=== PATIENT | male | born 1955 | race Caucasian/White ===

== ENCOUNTER → 2020-07-10 | Outpatient (CLI) | payer MEDICARE, OTHER ==
[~2020-07-10] MED LIST: BUPIVACAINE MPF 0.25% 10 ML VIAL. ONE; IOHEXOL 180 MG/ML 10 ML VIAL. ONE; [UNRECOGNIZED DRUG - REMARK]; methylPREDNISolone ACETATE 80 MG/ML VIAL. ONE
--- NOTE | 2020-07-10 15:27 | PDOC1 ---
INITIAL PAIN CONSULT DATE OF SERVICE: DOS: DATE: 07/10/20 TIME: 15:20 CHIEF COMPLAINT: Chief Complaint: Right knee joint pain following acute injury HISTORY OF PRESENT ILLNESS: 64-year-old male presents history of pain in the right knee after acute injury August 2019 as he was moving some large slabs of [place] and one slapped into the medial aspect of his right knee. Patient reports that since that time is been painful on and off in intensity but always present with difficulty walking standing put all of his weight on his right knee. Patient reports no loss of motor function but significant pain with activity standing walking especially climbing stairs putting all of his weight on his right leg patient describes the pain as throbbing intermittent intensity better with sitting or resting generally does not awaken him from sleep at night but occasionally can if he lays on his right side. Patient reports not effective bowel bladder control but does affect his body walk fairly significantly always not using any assistive devices. Patient is doing some stretching strengthening on his own but is not had any formal physical therapy is taking ibuprofen which does help by about 20 to 30% but is short-lived for only about 3 to 4 hours. Patient had plain films of the knees showing some degenerative change and early osteoarthritis. PAST MEDICAL HISTORY: PMH: Esophageal reflux PREVIOUS SURGERIES: Past Surgical Hx: Lumbar laminectomy 2014, sinus surgery 1994, inguinal hernia repair, LASEK procedure CURRENT MEDICATIONS: Current Meds: Active Scripts Medications Dose Route/Sig Max Daily Dose Days Date Category [denies daily meds] 07/10/20 Reported ALLERGIES; Allergies: Coded Allergies: No Known Drug Allergies (Unverified , 07/10/20) FAMILY HISTORY: Family Hx: No major medical problems or conditions that he is aware of SOCIAL HISTORY: Social Hx: Patient does not smoke not use any illegal illicit recreational drugs drinks alcoholic beverages approximately 3 times a week is lives with his spouse lives locally in [facility] REVIEW OF SYSTEMS: ROS: Positive for those items mentioned in history of present illness, all systems are reviewed, otherwise negative, is complete full and well-documented on patient's chart PHYSICAL EXAM: VS: Blood pressure is 123/83 pulse 96 respiration 16 temperature 98.6 F height is 5 foot 11 inches weight is 189 pounds PE: PHYSICAL EXAMINATION: GENERAL: The patient is awake, alert, oriented, appropriate, very pleasant demeanor HEENT: Shows normocephalic, atraumatic. Extraocular movements are intact and symmetrical. Oral cavity: Mucous membranes moist and pink. Dentition is intact. NECK: Shows anterior throat supple without palpable lymphadenopathy noted. Swallow reflex symmetrical. CHEST: Shows normal on inspection. Breath sounds are clear bilaterally, no rales rhonchi or wheezes auscultated. HEART: Shows S1, S2 clear. No murmurs auscultated. ABDOMEN: Soft, nontender, nondistended, flat. No palpable organomegaly is noted. No rebound or guarding demonstrated. BACK: Shows spine grossly in the midline. Normal-appearing cervical lordotic curvature. There is slightly increased thoracic kyphosis, some minor flattening of the lumbar lordotic curvature. Lumbar paraspinous muscles show symmetrical on inspection, on palpation shows some moderate tenderness diffusely throughout the upper, middle and lower distribution of the paraspinous muscles bilaterally without specific trigger points, without radiation of pain. No tenderness over the spinous processes, sacrum or sacroiliac regions. EXTREMITIES: Lower extremities show deep tendon reflexes 2+ in the patellar and tendo calcaneus tendons. Motor exam is 5 on a scale of 5 with right dorsiflexion, extension, quadriceps and hamstring flexion and 5/5 on the left. Peripheral pulses are 1+ posterior tibial. No peripheral edema is noted bilaterally. Lower extremities are warm and dry to touch, equal in color and appearance. Patient's right knee shows no significant tenderness with displacement of the patella both medial and laterally. Good range of motion without crepitus without ratcheting no shelf sign. Patient does have some moderate tenderness with palpation of the medial collateral ligament but not the lateral and without radiation. With weightbearing patient reports moderate pain the medial aspect of the knee on the right only. SKIN: Shows warm and dry, good turgor. No edema. No sores, rashes or bruising throughout. IMPRESSION: Impression: 64-year-old male with 11-month history after acute injury right knee with continued right knee pain also consistent with osteoarthritis Plan: Options were discussed with the patient including conservative medical management physical therapies interventional techniques. He like to pursue int erventional techniques we discussed an intra-articular right knee joint injection using description as well as anatomical models described procedure. Patient understands wished to proceed risk were discussed including but not limited to bleeding infection possibility of intravascular injection and sequelae spread local acetic numbness side effects of steroid medication exposure fluoroscopy and portals regarding pain control. Patient understands wished to proceed. Patient return to clinic in approximately 1 month for follow-up or as necessary. Patient was counseled as to return appointment activity level and side effects to be aware of. Under sterile prep and drape patient supine position using C-arm fluoroscopic guidance patient's right knee was visualized and locally identified on the medial aspect of the knee joint locally anesthetized using 1% lidocaine this time 22-gauge quickie needle with stylette was then introduced under direct fluoroscopic guidance into the medial aspect of the intra-articular knee joint without difficulty. Contrast was injected and showed good spread within the knee joint self without extravasation or washout. At this time solution containing 3 cc 0.25 bupivacaine and 80 mg Depo-Medrol was then injected into the knee joint needle was withdrawn and sterile bandage was applied. Patient tolerated the procedure well and had no complications. LUPILLO FOWLER MD Jul 10, 2020 15:27
== END | disposition home or self-care (01) ==
LOC: PNCL 14:28
PROVIDERS: ATTEND Anesthesiology
DX: M25.561 Pain in right knee (principal); K21.9 Gastro-esophageal reflux disease without esophagitis; Z79.899 Other long term (current) drug therapy; Z98.890 Other specified postprocedural states
CPT/HCPCS: 20610; 77002; J1040; J3490; Q9965

== ENCOUNTER → 2020-09-26 | Outpatient (CLI) | payer MEDICARE, OTHER ==
--- NOTE | 2020-09-26 15:55 | PDOC ---
Progress Note - Pain Clinic Date of Service: DOS: DATE: 09/26/20 TIME: 15:49 Diagnosis: Dx: Right knee joint pain with osteoarthritis History or Present Illness: HPI: 65-year-old male returns for follow-up status post right intra-articular knee joint injection July 10, 2020. Patient ports did very well with near 100% improvement until the last week to 2 weeks the pain began to return when he s tanding walking putting all his weight on his right leg such as climbing stairs or stepping on a curb patient reports otherwise doing very well is been very active with increased distance walking doing household activities work activities travel with greater ease and comfort she is sleeping well at night generally does not awaken her from sleep at night patient reports the pain is sharp at times and aching and dull most of the time patient rates his pain as a 6 on scale 10 is worse over the past week 5 on average for its least is a 4 today. Patient reports no new motor or sensory deficits no new changes. Physical Exam: VS: Pressure is 122/81 pulse is 77 respirations 18 temperature 98.2 F height is 5 feet 9 inches weight 195 pounds PE: PHYSICAL EXAMINATION: GENERAL: The patient is awake, alert, oriented, appropriate, very pleasant demeanor HEENT: Shows normocephalic, atraumatic. Extraocular movements are intact and symmetrical. NECK: Shows anterior throat supple without palpable lymphadenopathy noted. Swallow reflex symmetrical. CHEST: Shows normal on inspection. Breath sounds are clear bilaterally. HEART: Shows S1, S2 clear. No murmurs auscultated. ABDOMEN: Soft, nontender, nondistended. No palpable organomegaly is noted. BACK: Shows spine grossly in the midline. Normal-appearing cervical lordotic curvature. There is slightly increased thoracic kyphosis, some minor flattening of the lumbar lordotic curvature. EXTREMITIES: Lower extremities show deep tendon reflexes 2+ in the patellar and tendo calcaneus tendons. Motor exam is 5 on a scale of 5 with right dorsiflexion, extension, quadriceps and hamstring flexion and 5/5 on the left. Peripheral pulses are 1+ posterior tibial. No peripheral edema is noted bilaterally. Lower extremities are warm and dry to touch, equal in color and appearance. SKIN: Shows warm and dry, good turgor. No edema. No sores, rashes or bruising throughout. Procedure: Procedure: Options were discussed with the patient. Patient chart was reviews as well as his current medication regimen updated current review of systems updated today as well. We will proceed with a right intra-articular knee joint injection today with fluoroscopic guidance. Risk were discussed including but not limited to bleeding infection possibility of intravascular injection sequelae spread to local anesthetic and numbness side effects steroid medication and portal scarring pain control. Patient understands wished to proceed patient return to clinic in approximately 2 months for follow-up was counseled as return appointment activity level and side effects to be aware of. Medication Injected: Med Injected: Under sterile prep and drape patient's right knee was sterilely prepped and draped using C-arm fluoroscopic guidance knee joint was visualized. Using 1% lidocaine topical anesthesia was delivered over the medial component of the right knee joint space. Using a 22-gauge Quincke needle with stylette twice base was entered under direct visualization without difficulty stylet was removed aspiration was noted to be -1.5 cc of contrast was then injected with good spread within the intra-articular knee joint without washout. At this time 3 cc of 0.25% ropivacaine and 80 mg of Depo-Medrol was then injected into the knee joint needle was removed sterile bandage was applied. Patient tolerated procedure well had no complications. Condition at Discharge: Condition at Discharge: Condition at discharge is stable, patient tolerated the procedure well and had no complications. LUPILLO FOWLER MD Sep 26, 2020 15:54
--- NOTE | 2020-09-26 15:55 | PDOC4 ---
PROCEDURE Procedure Patient was consented for right intra-articular knee joint injection. Risks were discussed including but not limited to bleeding infection possibility of intravascular injection and sequelae spread to local anesthetic and numbness side effects steroid medication special fluoroscopy and portals regarding pain control. Patient understands wished to proceed. Under sterile prep and drape patient's right knee was sterilely prepped and draped using C-arm fluoroscopic guidance knee joint was visualized. Using 1% lidocaine topical anesthesia was delivered over the medial component of the right knee joint space. Using a 22-gauge Quincke needle with stylette twice base was entered under direct visualization without difficulty stylet was removed aspiration was noted to be -1.5 cc of contrast was then injected with good spread within the intra-articular knee joint without washout. At this time 3 cc of 0.25% ropivacaine and 80 mg of Depo-Medrol was then injected into the knee joint needle was removed sterile bandage was applied. Patient tolerated procedure well had no complications. LUPILLO FOWLER MD Sep 26, 2020 15:55
== END | disposition home or self-care (01) ==
LOC: PNCL 14:28
PROVIDERS: ATTEND Anesthesiology
DX: M17.11 Unilateral primary osteoarthritis, right knee (principal); M25.561 Pain in right knee; Z79.899 Other long term (current) drug therapy
CPT/HCPCS: 20610; 77002; J1040; J3490; Q9965

== ENCOUNTER → 2021-06-06 | Outpatient (CLI) | payer MEDICARE, OTHER ==
[~2021-06-06] MED LIST changes: -BUPIVACAINE MPF 0.25% 10 ML VIAL. ONE; +DIPH25CA58 PO; +IBUP-1027 PO; -IOHEXOL 180 MG/ML 10 ML VIAL. ONE; +KETO10TA PO; -methylPREDNISolone ACETATE 80 MG/ML VIAL. ONE
== END ==
LOC: LAB 10:32
PROVIDERS: ATTEND Neurological Surgery
DX: Z01.812 Encounter for preprocedural laboratory examination (principal); Z20.822 Contact with and (suspected) exposure to COVID-19; G56.01 Carpal tunnel syndrome, right upper limb; G56.02 Carpal tunnel syndrome, left upper limb
CPT/HCPCS: U0003; U0005

== ENCOUNTER 2021-06-09 09:11 | Day surgery (SDC) | payer MEDICARE, OTHER ==
[~2021-06-09] VITALS: Ht 180.3 cm; Wt 88.1 kg
[~2021-06-09 09:11] MED LIST changes: +CLINDAMYCIN 900MG PREMIX 50 ML IV PRN; +HYDROmorphone 2 MG/ML VIAL IVP PRN; +IV RINGERS,LACTATED 1000ML 1,000 ML IV SCH; -KETO10TA PO; +MORPHINE SULFATE 2 MG/ML INJ. IVP PRN; +PROCHLORPERAZINE 10 MG/2 ML VIAL. IVP PRN; +fentaNYL PF VIAL 100 MCG/2 ML VIAL IVP PRN
[2021-06-09 09:29] VITALS: BP 132/68
[2021-06-09] MEDS ORDERED: MIDAZOLAM HCL/PF 2 MG/2 ML VIAL. ONE (09:34)
[2021-06-09] MEDS ORDERED: ONDANSETRON PF 4 MG/2 ML VIAL. ONE (09:34)
[2021-06-09] MEDS ORDERED: PROPOFOL 10 MG/ML (20ML) VIAL. IV ONE ×3 (09:34→10:59)
[2021-06-09] MEDS ORDERED: DEXAMETHASONE SOD PHOS 4 MG/ML VIAL ONE (09:34)
[2021-06-09] MEDS ORDERED: LIDOCAINE 2% PF 5 ML VIAL. ONE (09:34)
[2021-06-09] MEDS ORDERED: BUPIVACAINE MPF 0.25% 30 ML VIAL. ONE (09:58)
[2021-06-09] MEDS ORDERED: KETOROLAC 60 MG/2 ML VIAL. ONE (10:26)
[2021-06-09] MEDS ORDERED: KETO10TA PO (10:28)
[2021-06-09] MEDS ORDERED: SEVOFLURANE 31 TO 60 MINUTES. IH ONE (10:51)
--- NOTE | 2021-06-09 10:53 | PDOC4 ---
OPERATIVE NOTE Date: Date: Jun 09, 2021 Pre-Op Diagnosis: Bilateral carpal tunnel syndrome Post-Op Diagnosis: Same Procedure Performed: Bilateral carpal tunnel release Surgeon: Nathan Anesthesia Type: General Blood Loss: 5 cc Specimans Obtained: None Findings: See dictation Complications: None EDUARDO MORTON Jr. DO Jun 09, 2021 10:53
--- NOTE | 2021-06-09 11:14 | PREOP HP ---
DATE OF SERVICE: 06/09/2021 HISTORY AND CHIEF COMPLAINT: Bilateral upper extremity numbness and tingling in the median nerve distribution. This has been going on for an extended amount of time. He has already undergone nonoperative treatment. However, despite the use of the bracing as well as modifying activities, stretching, etc., although the left hand is much worse than the right as far as the carpal tunnel syndrome, he has begun having weakness as far as the stock hanger and especially grasping and use of the index and the thumb together. There is no history of trauma. No other significant findings. REVIEW OF SYSTEMS: Unremarkable other than the current numbness and tingling. There are no changes as far as the cardiac, respiratory, GI, dermatology, neurology other than the numbness and tingling. No musculoskeletal issues and no endocrine issues. ALLERGIES: CEPHALOSPORINS. PAST SURGICAL HISTORY: Sinus surgery, hernia repair with Dr. Mackenzie and then diskectomy in 1984. Three-level spinal decompression by Dr. Schmitt. FAMILY HISTORY: Unremarkable. SOCIAL HISTORY: He denies any current tobacco use. There is some tobacco by history. No alcohol use on a daily basis. Occasional 1-2 glasses of wine. MEDICATIONS: Currently none. PHYSICAL EXAMINATION: GENERAL: He is 190 pounds, 71 inches tall. NEUROLOGIC: Alert and oriented x3. There are no issues as far as the heart rate, which is regular rhythm with no abnormalities. Decreased sensation is noted to bilateral upper extremities in the median distribution only, slightly worse on the left than the right. Positive Tinel's and positive Phalen's test bilaterally. Again, more on the left than on the right. Vascular status is fully intact. The remainder of the examination shows no other abnormalities of any other system. IMPRESSION: Chronic bilateral carpal tunnel syndrome. PLAN: At this time, he has failed conservative therapies and the use of a large amount of nonsurgical treatments and unfortunately continues to have significant numbness and tingling in the median nerve distribution and now has been having weakness. He is therefore consented for bilateral carpal tunnel release. He would like to do that at the same time and he is going on a vacation shortly thereafter. He is made well aware of the risks, complications, as well as benefits and expectations of surgery, postoperative protocol and followup. JOMAR/ALY DR: Chelly TID: [id number]
--- NOTE | 2021-06-09 11:19 | DISCH ---
DISCHARGE INSTRUCTIONS Condition on Discharge Condition on Discharge: Stable Activity After Discharge Activity Instructions for Disc: Activity as tolerated, Avoid exertion Bathing Instructions: Shower-keep dressing dry Lifting Instructions after Dis: Do not lift >10 pounds Driving Instructions after Dis: Do not drive today Wound Incision Care Wound/Incision Care: Ice to area for comfort, Keep wound elevated, Change dressing Other wound/incision instructi: May change dressing postoperative day #3 Follow-Up Follow up with: With Dr. Morton in 10 to 14 days EDUARDO MORTON Jr. DO Jun 09, 2021 11:19
--- NOTE | 2021-06-09 11:25 | OP ---
DATE OF SURGERY: 06/09/2021 PREOPERATIVE DIAGNOSES: Bilateral carpal tunnel syndrome. POSTOPERATIVE DIAGNOSES: Bilateral carpal tunnel syndrome. PROCEDURE: Carpal tunnel release, bilateral. SURGEON: Chau Evans MD SCRAP PICKER: Boris Hunt MD TYPE OF ANESTHESIA: General. COMPLICATIONS: None. ESTIMATED BLOOD LOSS: 5 mL. Standard dictation for medical staff assistant. DESCRIPTION OF PROCEDURE: The patient was taken to the operative suite, given a general anesthetic. Right upper extremity and left upper extremity were both prepped and draped in a sterile fashion. An incision was made on the right carpal tunnel first through skin and subcutaneous tissues down to the palmar fascia, which was also incised and with a skin incision. The transverse carpal ligament was identified and released. The underlying nerve was noted to be intact, but completely released at this point. The wound was then thoroughly irrigated and reapproximated in an interrupted fashion using a 3-0 nylon. Attention was then directed to the opposite extremity. There was no ability to exsanguinate, but the tourniquet was placed using an Esmarch only. Incision was made through skin and subcutaneous tissues down to the palmar fascia. This was further taken down to the transverse carpal ligament, which again was identified and then fully released. The underlying nerve on this side was also noted to be completely intact. No excessive bleeding was noted. Therefore, this was thoroughly irrigated. The wound was then reapproximated in an interrupted fashion using 3-0 nylon. Sterile dressing was applied after local was placed along the incision sites. The tourniquet was deflated with good return of pulses, cap refill and the removal of the Esmarch also revealed there to be good pulses and capillary refill. The patient was then taken from the operative bed to the postoperative bed, taken to the PACU in stable condition. YELENA DR: Chlely TID: [id number]
[2021-06-09 11:34] VITALS: BP 109/68
== END 2021-06-09 12:00 | disposition home or self-care (01) ==
LOC: SURG 09:11
PROVIDERS: ATTEND Orthopaedic Surgery
DX: G56.03 Carpal tunnel syndrome, bilateral upper limbs (principal); M19.90 Unspecified osteoarthritis, unspecified site; Z79.899 Other long term (current) drug therapy; Z98.890 Other specified postprocedural states; Z87.891 Personal history of nicotine dependence; Z72.89 Other problems related to lifestyle; Z88.8 Allergy status to other drugs, medicaments and biological substances
CPT/HCPCS: 64721; A4930; A6402; J1100; J1885; J2405; J2704; J3490; A4657; A6452; J2250